=== PATIENT | male | born 1950 | race African-American/Black ===

== ENCOUNTER 2016-12-23 17:12 | Emergency (ER) | payer MEDICARE, MEDICAID ==
[2016-12-23] MEDS ORDERED: Acetaminophen/Codeine 30-300mg Tablet ONE (18:00)
[2016-12-23 18:23] LABS: #Basophils 0.1 thou/uL (0.0-0.2); #Eosinphils 0.1 thou/uL (0.0-0.7); #Lymphocytes 1.7 thou/uL (1.20-3.40); #Monocytes 0.7 thou/uL (0.11-0.59); #Neutrophils 4.8 thou/uL (1.40-6.50); %Basophils 1.6 % (0.0-1.0); %Lymphocytes 22.8 % (21.0-51.0); Hematocrit 42.2 % (42.0-52.0); Mean Platelet Volume 8.5 fL (7.4-10.4); Red Blood Cell (RBC) Count 4.67 mill/uL (4.70-6.10); White Blood Cell (WBC) Count 7.5 thou/uL (4.8-10.8)
[2016-12-23 18:38] LABS: Lactic Acid - Sepsis 2.6 mmol/L (0.5-2.2)
[2016-12-23 18:42] LABS: Anion Gap 14 mmol/L (10-20); BUN (Urea Nitrogen) 23 mg/dL (8.4-25.7); Calc. Creatinine Clearance 0 mL/min (70-130); Calcium 10.1 mg/dL (7.8-10.44); Carbon Dioxide 28 mmol/L (23-31); Chloride 104 mmol/L (98-107); Estimated GFR-MDRD 72
--- NOTE | 2016-12-23 19:39 | RAD ---
THREE VIEWS LEFT FOOT: 12/23/16 HISTORY: Erythema of left foot. Swelling of left foot and erythema for three days. Left foot pain is worse wi th ambulation. FINDINGS: There is osteoarthritis involving the first metatarsophalangeal joint as well as the interphalangeal joint great toe. No fracture or dislocation is seen. No osseous destruction is identified. IMPRESSION: 1. Osteoarthritis first metatarsophalangeal joint and to a lesser extent involving the interphalangeal joint great toe. 2. No osseous destruction is seen. However, if there is clinical concern for osteomyelitis, MRI left foot is recommended for further evaluation. POS: [facility]
--- NOTE | 2016-12-23 19:52 | RAD ---
THREE VIEWS LEFT ANKLE 12/23/16 HISTORY: Left foot redness and swelling for three days. FINDINGS: The ankle mortise is congruent. There is no fracture or dislocation seen. Tiny plantar calcaneal ent hesophyte is seen. There are vascular calcifications posterior to the ankle and hindfoot. IMPRESSION: No acute osseous abnormality. POS: [facility]
[2016-12-23 20:53] LABS: Lactic Acid - Sepsis 1.1 mmol/L (0.5-2.2)
== END 2016-12-23 21:56 | disposition home or self-care (01) ==
LOC: ERS 17:12
DX: L03.116 Cellulitis of left lower limb (principal); I25.10 Atherosclerotic heart disease of native coronary artery without angina pectoris; E78.5 Hyperlipidemia, unspecified; I10 Essential (primary) hypertension; Z79.899 Other long term (current) drug therapy
CPT/HCPCS: 36415; 80048; 83605; 85025; 96361; 96374

== ENCOUNTER 2017-04-16 16:36 | Emergency (ER) | payer MEDICARE, MEDICAID, OTHER ==
[2017-04-16] MEDS ORDERED: Dexamethasone 4 MG TAB ONE (19:00)
== END 2017-04-16 19:06 | disposition home or self-care (01) ==
LOC: ERS 16:36
DX: J04.0 Acute laryngitis (principal); I25.10 Atherosclerotic heart disease of native coronary artery without angina pectoris; E78.5 Hyperlipidemia, unspecified; I10 Essential (primary) hypertension
CPT/HCPCS: 87081; 87430; 99283; J8540

== ENCOUNTER 2017-10-18 16:04 | Observation (INO) | payer MEDICARE, OTHER ==
--- NOTE | 2017-10-18 17:45 | RAD ---
RIGHT HUMERUS TWO VIEWS: 10/18/17 HISTORY: Fall. Pain. FINDINGS: Sclerosis of the greater tuberosity likely due to degenerative change. No fracture. No cortical irreg ularity. No periosteal reaction. IMPRESSION: No fracture. POS: [facility]
[2017-10-18 18:00] LABS: #Basophils 0.1 thou/uL (0.0-0.2); #Eosinphils 0.1 thou/uL (0.0-0.7); #Monocytes 0.5 thou/uL (0.11-0.59); #Neutrophils 4.1 thou/uL (1.40-6.50); %Basophils 1.5 % (0.0-1.0); %Eosinophils 1.8 % (0.0-10.0); %Lymphocytes 29.2 % (21.0-51.0); %Monocytes 7.9 % (0.0-10.0); %Neutrophils 59.7 % (42.0-75.0); Hemoglobin 13.6 g/dL (14.0-18.0); Mean Corpuscular HGB CONC 33.4 g/dL (32.0-36.0); Mean Corpuscular Hemoglobin 29.2 pg (27.0-31.0); Mean Corpuscular Volume 87.5 fL (78.0-98.0); Mean Platelet Volume 8.6 fL (7.4-10.4); Platelet Count 184 thou/uL (130-400); RBC Distribution Width 12.6 % (11.5-14.5); Red Blood Cell (RBC) Count 4.67 mill/uL (4.70-6.10); White Blood Cell (WBC) Count 6.8 thou/uL (4.8-10.8)
--- NOTE | 2017-10-18 18:16 | RAD ---
FOUR VIEWS RIGHT ELBOW: 10/18/17 HISTORY: Fall. Pain. COMPARISON: None. FINDINGS: There is dorsal soft tissue swelling with soft tissue calcifications of uncertain significance. There is no joint effusion. However, there appears to be a slight angulation and questionable sclerosis in volving the proximal radius/radial head. Correlate for a possible acute/subacute injury. IMPRESSION: 1. Questionable acute/subacute proximal radius/radial head injury. 2. Soft tissue swelling and calcifications along the dorsum of the elbow. Findings may be due to remote trauma. POS: [facility]
--- NOTE | 2017-10-18 18:17 | RAD ---
CHEST ONE VIEW: 10/18/17 COMPARISON: 03/11/12. HISTORY: Frequent falls. Pain. FINDINGS: Normal cardiac silhouette. Pulmonary vessels and pulmonary hilum are normal. Costophrenic angles are clear. No mass. No consolidation. No pneumothorax or osseous abnormalities. IMPRESSION: No acute cardiopulmonary process. POS: [facility]
[2017-10-18 18:20] LABS: ALT (SGPT) 22 U/L (8-55); AST (SGOT) 31 U/L (5-34); Albumin 4.2 g/dL (3.4-4.8); Alkaline Phosphatase 64 U/L (40-150); Anion Gap 13 mmol/L (10-20); BUN (Urea Nitrogen) 24 mg/dL (8.4-25.7); Bilirubin, Total 0.5 mg/dL (0.2-1.2); Calc. Creatinine Clearance 0 mL/min (70-130); Calcium 9.6 mg/dL (7.8-10.44); Carbon Dioxide 26 mmol/L (23-31); Chloride 107 mmol/L (98-107); Estimated GFR-MDRD 68; Globulin 3.2 g/dL (2.4-3.5); Glucose 94 mg/dL (80-115); Potassium 3.4 mmol/L (3.5-5.1); Protein, Total 7.4 g/dL (5.8-8.1); Sodium 143 mmol/L (136-145)
[2017-10-18 18:23] LABS: Troponin I Less than 0.010 ng/mL (< 0.028)
[2017-10-18 18:28] LABS: CKMB 7.9 ng/mL (0-6.6)
--- NOTE | 2017-10-18 18:28 | CT ---
CT BRAIN WITHOUT CONTRAST: 10/18/17 COMPARISON: 08/23/09. HISTORY: Frequent falls for the past three months. FINDINGS: No parenchymal hemorrhage. No extra-axial hematoma. No midline shift. Basilar cisterns are patent. Ag e appropriate brain volume loss. Cortical magallon-white matter differentiation is preserved. Sulci are p atent. 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 No evidence of hydrocephalus. No significant change in the overall appearance of the ventricular system. Calvarium is intact. Adequate aeration of the sinuses and mastoid air cells. IMPRESSION: 1. No acute intracranial process. 2. 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 POS: [facility]
[2017-10-18 18:49] LABS: Bilirubin Negative (Negative); Blood, Urine Negative (Negative); Glucose, Urine (Dipstick) Negative (Negative); Leukocyte Negative (Negative); Nitrite Negative (Negative); Protein, Urine (Dipstick) Negative (Neg-Trace); Specific Gravity, Urine 1.025 (1.005-1.030); Urobilinogen 0.2 mg/dL (0.2-1.0); pH, Urine 5.5 (5.0-9.0)
[2017-10-18 18:56] LABS: Clarity CLEAR (Clear)
[2017-10-18 21:46] LABS: Troponin I Less than 0.010 ng/mL (< 0.028)
[2017-10-18 21:47] LABS: CKMB 7.2 ng/mL (0-6.6); Critical Call CKMBM RESULT DECREASING
--- NOTE | 2017-10-18 22:31 | PDOC.FPRHP ---
- History of Present Illness Chief Complaint: Fall History of Present Illness: 67yo M with PMH of CAD s/p stents x4 presents for 3 month history of falls. Reports he has fallen over 10 times in the last three months due to loss of balance and LLE weakness. No syncope, no dizziness, no light headedness. Pt does not recall if he has hit his head. He has never experienced falls of this type and frequency before. Pt also complains of R arm pain, reporting he requently falls on R elbow and most recently hit his elbow on a hard table. Pain is alleviated by immobilization with other arm. Pt describes LLE weakness as constant with intermittent exacerbations (causing falls) and that it is also often numb and/or mildy painful. Symptoms alleviated by aspirin somewhat. Pt has also tried sleeping with leg on pillow but it has not helped. - Allergies/Adverse Reactions Allergies Allergy/AdvReac Type Severity Reaction Status Date / Time Influenza Virus Vaccines Allergy Verified 10/19/17 03:47 pneumococcal vaccine Allergy Verified 10/19/17 03:47 - Home Medications Medication Instructions Recorded Confirmed Type Allopurinol 300 mg PO DAILY 10/18/17 10/18/17 History Aspirin [Ecotrin Low Strength] 81 mg PO DAILY 10/18/17 10/18/17 History Atenolol/Chlorthalidone 1 tab PO DAILY 10/18/17 10/18/17 History [Atenolol-Chlorthalidone 100-25] Folic Acid 1 mg PO DAILY 10/18/17 10/18/17 History Meloxicam 15 mg PO DAILY 10/18/17 10/18/17 History Pravastatin Sodium 40 mg PO HS 10/18/17 10/18/17 History - History PMHx: CAD s/p stents x4, CHF, HTN, HLD, gout PSHx: Undetermined L kidney surgery per pt FHx: PVD, CAD Social: tobacco- denies, EtOH- denies, drugs- denies - Review of Systems General: reports: other (weakness, no dizziness). denies: fever/chills, fatigue ENT: denies: nasal congestion, rhinorrhea Respiratory: denies: cough, congestion, shortness of breath Cardiovascular: denies: chest pain, palpitation Gastrointestinal: reports: other (incontinence). denies: nausea, vomiting Genitourinary: reports: incontinence. denies: dysuria Skin: denies: rashes, lesions Musculoskeletal: reports: pain, other (weakness) Neurological: denies: syncope, seizure Psychological: reports: other (normal mood and affect) - Vital signs BP: [164/72] HR: [68] RR: [18] Tmax: [98.2] Pox: [97]% on [RA] Wt: [114.12] - Physical Exam Constitutional: awake, alert and oriented, other (Pt appears moderatly distressed by arm pain) HEENT: normocephalic and atraumatic, EOMI, conjunctiva clear, no scleral icterus , MMM Neck: trachea midline Heart: RRR, normal S1/S2, no murmurs/rubs/gallops, pulses present Lungs: CTAB, no respiratory distress Abdomen: soft, non-tender Musculoskeletal: normal structure, other (R arm- Impressive tenderness to palpation on medial and lateral elbow, decreased ROM on extension and internal/ external rotation, decreased L pedal pulse) Neurological: other ( decreased strength diffusely on LLE, decreased sensation on L foot. normal sensation and 5/5 strength on RLE) Skin: no rash/lesions, good turgor Heme/Lymphatic: no purpura, no petechia Psychiatric: normal mood and affect, intact recent and remote memory FMR H&P: Results - Labs Result Diagrams: 10/19/17 04:07 10/19/17 04:07 Lab results: WBC 6.8 thou/uL (4.8-10.8) 10/18/17 17:50 Hgb 13.6 g/dL (14.0-18.0) L 10/18/17 17:50 Hct 40.8 % (42.0-52.0) L 10/18/17 17:50 MCV 87.5 fL (78.0-98.0) 10/18/17 17:50 Plt Count 184 thou/uL (130-400) 10/18/17 17:50 Neutrophils % 59.7 % (42.0-75.0) 10/18/17 17:50 Sodium 143 mmol/L (136-145) 10/18/17 17:50 Potassium 3.4 mmol/L (3.5-5.1) L 10/18/17 17:50 Chloride 107 mmol/L (98-107) 10/18/17 17:50 Carbon Dioxide 26 mmol/L (23-31) 10/18/17 17:50 BUN 24 mg/dL (8.4-25.7) 10/18/17 17:50 Creatinine 1.28 mg/dL (0.6-1.3) 10/18/17 17:50 Glucose 94 mg/dL (80-115) 10/18/17 17:50 Calcium 9.6 mg/dL (7.8-10.44) 10/18/17 17:50 Total Bilirubin 0.5 mg/dL (0.2-1.2) 10/18/17 17:50 AST 31 U/L (5-34) 10/18/17 17:50 ALT 22 U/L (8-55) 10/18/17 17:50 Alkaline Phosphatase 64 U/L (40-150) 10/18/17 17:50 Creatine Kinase 933 U/L (30-200) H 10/18/17 21:11 CK-MB (CK-2) 7.2 ng/mL (0-6.6) H* 10/18/17 21:11 B-Natriuretic Peptide 15.3 pg/mL (0-100) 10/18/17 17:50 Serum Total Protein 7.4 g/dL (5.8-8.1) 10/18/17 17:50 Albumin 4.2 g/dL (3.4-4.8) 10/18/17 17:50 Urine Ketones Negative mg/dL (Negative) 10/18/17 18:26 Urine Blood Negative (Negative) 10/18/17 18:26 Urine Nitrite Negative (Negative) 10/18/17 18:26 Ur Leukocyte Esterase Negative (Negative) 10/18/17 18:26 FMR H&P: A/P - Problem List (1) Recurrent falls Status: Acute Code(s): R29.6 - REPEATED FALLS (2) Rhabdomyolysis Status: Acute Code(s): M62.82 - RHABDOMYOLYSIS (3) Right arm pain Status: Acute Code(s): M79.601 - PAIN IN RIGHT ARM (4) CHF (congestive heart failure) Status: Acute Code(s): I50.9 - HEART FAILURE, UNSPECIFIED (5) CAD (coronary artery disease) Status: Acute Code(s): I25.10 - ATHSCL HEART DISEASE OF [place] CORONARY ARTERY W/O ANG PCTRS - Plan 67yo M with PMH of CAD s/p stents x4 and MR presenting for 3 month history of recurrent falls. Recurrent falls and LLE weakness A- CT unremarkable. Cardiac causes vs. PAD vs. musculoskeletal P- TTE - XR pelvis, L hip/femur, and Lumbar (will consider lumbar and head MRI) - ESR - PT and OT Rhabdomyolysis A- In ED CK 940, CKMB 7.9 was given 1L NS. Pt has history of CHF so will be cautious with IVF. P- LR @ 100ml/hr - repeat CKMB and CK in 3 hours CHF A- Pt has good O2 sat on RA, no clinical signs of exacerbation P- TTE - monitor signs of overload R arm and L hip pain A- R arm XR showed no fractures P- prn tramadol - XR as listed above Hypokalemia - replace with LR CAD - home meds Gout - home meds HTN -home meds -prn hydralazine FMR H&P: Upper Level - Pertinent history 67 yo AAM PMH intellectual disability, HTN, CHF (unspecified) CAD s/p stent placement x4, HLD, and absent corpous collusum. Presents with recurrent falls x 10 in past 3 months. New onset as of 3 months ago. Denies LOC. Reports weakness in legs. Normally falls to the right. Has hit right elbow multiple times and is complaining of pain in right arm. Most recent fall was today when he fell on glass table. States he occasionally has issues with incontinence because he cannot make it to the bathroom in time. History is limited due to patient's baseline MR. ER: Labs, CT brain, XR elbow and shoulder, ASA, NS x 1L. Remarkable for elevated CK and CK-MB - Pertinent findings Vitals: BP elevated 164/72, likely due to pain. otherwise WNL GEN: Appears to be in mild to moderate pain that worsens with movement. A&O x4. EENT: PERRL, EOMI, poor dentition MMM CV: RRR, no murmur, rubs, or gallops, pedal pulses present bilaterally, Lung: CTA-B, normal effort Neuro: Exam limited due to pain in patient's left leg. Decrease strength 3/5 in left lower leg in all major muscle groups. 5/5 right leg. CN 2-12 grossly intact. Right patellar reflex 2/4. Left patellar reflex brisk 3/4. Difficult to illicit clonus. Patient able to stand briefly, normal sensation MS: marked TTP along gluteal region of left hip, greater trochanter, and IT band. Back: No paraspinal or midline TTP. Imaging: XR elbow shows possible subacute injury to radial head. CXR negative, CT Brain negative EKG: unremarkable. Labs. Hypokalemic at 3.4. CK elevate mid 900s. CKMB elevated at mid 7s. Mild down trend with 1 L fluid. - Plan Date/Time: 10/18/17 8039 I, Armand Gonzales MD, have evaluated this patient and agree with findings/plan as outlined by general internal medicine doctor resident. Pertinent changes/additions are listed here. 1. Recurrent falls with left sided weakness- CT brain unremarkable except for chronic findings. Check TTE, XR pelvis and left hip/femur, consider MRI lumbar spine to evaluate for impingement, check ESR to evaluate for autoimmune conditions, fall precautions. 2. Mild rhabdomyolysis- given hx CHF, gentle LR at 100 mL per hour, repeat CKMB and CK in 3 hours 3. CHF: TTE, monitor for signs of fluid overload 4. CAD: home meds 5. Hypokalemia: replace with LR 6. HTN: Monitor, home meds, PRNs available 7. MR: will attempt to obtain history from family tomorrow 8. Left hip pain: PRN tramadol available 9. Diet: HH 10. CODE: Full Attending Addendum - Attending Addendum Date/Time: 10/19/17 [id number] I personally evaluated the patient and discussed the management with Dr. Kilpatrick and Dr. Gonzales I agree with the History, Examination, Assessment and Plan documented above with any addition or exceptions noted below. 67 yo male with multiple medical conditions presented for evaluation of recurrent falls. Patient noticed weakness in pelvic girdle muscles over the past several weeks. Weakness noted on exam along with other UMN lesion findings with brisk reflex and possible mild clonus. Will rule out myositis as cause due to elevated muscle enzymes. MRI in AM to evaluate spine and spinal canal. [facility]
[2017-10-19 01:14] LABS: Troponin I 0.011 ng/mL (< 0.028)
[2017-10-19] MEDS ORDERED: hydrALAZINE 20 MG/ML VIAL SLOW IVP PRN (01:15)
[2017-10-19] MEDS ORDERED: traMADol HCl 50 MG TAB PO PRN (03:21)
[2017-10-19] MEDS ORDERED: Ondansetron ODT 4 MG TAB PO PRN (03:21)
[2017-10-19] MEDS ORDERED: Acetaminophen 325 MG TAB PO PRN (03:21)
[2017-10-19] MEDS: Lactated Ringer's 1,000 ML IV SCH ×2 (04:05→18:52)
[2017-10-19 05:02] LABS: #Basophils 0.1 thou/uL (0.0-0.2); #Eosinphils 0.2 thou/uL (0.0-0.7); #Lymphocytes 2.3 thou/uL (1.20-3.40); #Monocytes 0.6 thou/uL (0.11-0.59); #Neutrophils 3.6 thou/uL (1.40-6.50); %Basophils 1.5 % (0.0-1.0); %Eosinophils 2.8 % (0.0-10.0); %Lymphocytes 33.9 % (21.0-51.0); %Monocytes 8.5 % (0.0-10.0); %Neutrophils 53.3 % (42.0-75.0); Hemoglobin 13.1 g/dL (14.0-18.0); Mean Corpuscular Hemoglobin 29.6 pg (27.0-31.0); Mean Corpuscular Volume 87.2 fL (78.0-98.0); Mean Platelet Volume 8.7 fL (7.4-10.4); Platelet Count 166 thou/uL (130-400); RBC Distribution Width 12.7 % (11.5-14.5); Red Blood Cell (RBC) Count 4.42 mill/uL (4.70-6.10); White Blood Cell (WBC) Count 6.7 thou/uL (4.8-10.8)
[2017-10-19 05:09] LABS: ALT (SGPT) 20 U/L (8-55); AST (SGOT) 28 U/L (5-34); Albumin 3.8 g/dL (3.4-4.8); Alkaline Phosphatase 60 U/L (40-150); Anion Gap 11 mmol/L (10-20); BUN (Urea Nitrogen) 19 mg/dL (8.4-25.7); Bilirubin, Total 0.6 mg/dL (0.2-1.2); Calc. Creatinine Clearance 0 mL/min (70-130); Calcium 9.1 mg/dL (7.8-10.44); Carbon Dioxide 27 mmol/L (23-31); Chloride 107 mmol/L (98-107); Estimated GFR-MDRD 81; Globulin 2.9 g/dL (2.4-3.5); Glucose 97 mg/dL (80-115); Potassium 3.1 mmol/L (3.5-5.1); Protein, Total 6.7 g/dL (5.8-8.1); Sodium 142 mmol/L (136-145)
[2017-10-19 05:14] LABS: CKMB 5.1 ng/mL (0-6.6); Troponin I Less than 0.010 ng/mL (< 0.028)
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
[2017-10-19] MEDS: Folic Acid 1 MG TAB PO SCH (08:50)
[2017-10-19] MEDS: Allopurinol 300 MG TAB PO SCH (08:50)
[2017-10-19] MEDS: Atenolol 50 MG TAB PO SCH (08:50)
[2017-10-19] MEDS: Aspirin 81 mg Enteric Coated Tablet PO SCH (08:50)
--- NOTE | 2017-10-19 09:29 | RAD ---
AP PELVIS: HISTORY: Hip pain. FINDINGS: There are some arthritic changes of the lower lumbar spine. There are some mild arthritic changes of both hips. No signs of any acute bony process. IMPRESSION: Very mild arthritic changes of both hips. POS: [facility]
--- NOTE | 2017-10-19 09:30 | RAD ---
LUMBAR SPINE SERIES 3 VIEWS: HISTORY: Recurrent fails. FINDINGS: Vertebral bodies are normal in height. There is severe disk narrowing at the L5-S1 level. Vacuum di sk phenomenon. Marked degenerative facet changes are seen. Pedicles appear intact. IMPRESSION: Marked degenerative disk narrowing at L5-S1. POS: [facility]
--- NOTE | 2017-10-19 09:31 | RAD ---
LEFT HIP 2 VIWS: HISTORY: Hip pain. Fairly minimal arthritic changes of the hip are seen. No significant joint space narrowing. There i s minimal spurring along the femoral head and neck junction. IMPRESSION: Minimal arthritic changes of the hip. POS: [facility]
--- NOTE | 2017-10-19 09:41 | RAD ---
LEFT FEMUR 2 VIEWS: HISTORY: Fall. Pain. COMPARISON: None. FINDINGS: There is no acute displaced fracture or malalignment. Moderate vascular calcifications. IMPRESSION: No acute fracture or malalignment. POS: [facility]
[2017-10-19] MEDS ORDERED: Potassium Chloride 20 MEQ TAB PO SCH (11:00)
[2017-10-19 11:05] VITALS: BMI 33.0
--- NOTE | 2017-10-19 13:19 | MRI ---
MRI OF LUMBAR SPINE PERFORMED WITHOUT CONTRAST ENHANCEMENT: History Back pain and left lower extremity weakness. FINDINGS: The vertebral bodies are normal in height. There are disk desiccation changes and disk narrowing at L5-S1 and spondylolisthesis at this level of approximately 6-7 mm. No significant periaortic adenopathy is appreciated. Visualized portions of the kidneys appear unrem arkable. T12-L1: Unremarkable. L1-2: Unremarkable. L2-3: Facet hypertrophic changes without canal or foraminal stenosis. L3-4: Some disk bulge and mild facet hypertrophic changes associated with some borderline canal narr owing. No significant foraminal stenosis. L4-5: Disk bulge, facet and ligamentous hypertrophic changes are present at this level. This is ass ociated with a moderate degree of canal stenosis. There appears to be a small right paracentral supe rior disk extrusion also noted. There is bilateral foraminal narrowing which is moderate and worse o n the left. L5-S1: Degenerative facet and ligamentous hypertrophic changes associated with a moderate degree of canal narrowing. This, in combination with the facet changes and spondylolisthesis, cause fairly pro nounced bilateral foraminal narrowing. IMPRESSION: 1. Moderate canal stenosis at the L4-5 and L5-S1 levels. 2. Right paracentral small superior disk extrusion at L4-5. 3. Bilateral foraminal narrowing at the L4-5 and L5-S1 levels. POS: [facility]
[2017-10-19] MEDS ORDERED: Atorvastatin Calcium 10 MG TAB PO SCH (21:00)
--- NOTE | 2017-10-20 03:26 | DIS-2 ---
DATE OF ADMISSION: 10/19/2017 DATE OF DISCHARGE: 10/19/2017 RESIDENT: Moo Read DO. ADMITTING ATTENDING: Dr. Dayana Webber. DISCHARGE ATTENDING: Dr. Mario Ascencio. CONSULTATIONS: None. PROCEDURES: Patient had an x-ray of his right elbow showing soft tissue swelling and questionable ac silvano versus subacute proximal radius injury. Chest x-ray showed no acute cardiopulmonary processes. X-ray of the humerus showed no fracture. X-ray of femur showed no acute fracture or misalignment. X -ray of hip showed minimal arthritic changes of the hip. X-ray of the lumbar spine shows marked dege nerative disk narrowing at L5-S1. Pelvis x-ray showed mild arthritic changes in both hips. Brain CT showed no acute intracranial processes and corpus callosum agenesis with association of findings. L umbar spine MRI showed moderate canal stenosis of the L4-L5 and L5-S1 levels, right parenchymal small superior disk extrusion at L4-L5, bilateral foraminal narrowing at L4-L5 and L5-S1 levels. Echocard iogram showed ejection fraction of 50% to 55%, normal left atrium and ventricle, mild mitral and tric uspid regurgitation. PRIMARY DIAGNOSIS: Left lower extremity weakness due to lumbar stenosis. SECONDARY DIAGNOSES: Coronary artery disease with 4 stents, congestive heart failure, hypertension, hyperlipidemia, gout. DISCHARGE MEDICATIONS: None. DISCONTINUED MEDICATIONS: None. HISTORY OF PRESENT ILLNESS: This patient presented to the ER with a history of 10 falls in the last 3 months. Patient states that he feels like his left leg gives out without any warning. During his hospital stay, patient was worked up for any immediate risk problems. The patient was discharged and instructed to follow up with his primary care provider, Dr. Burnett regarding the workup that he rec eived this hospital. DISPOSITION: Stable. DISCHARGE INSTRUCTIONS: 1. Location: Home. 2. Diet: Heart healthy. 3. Activity: As tolerated. 4. Follow up with primary care physician in the next 1-2 weeks.
[2017-10-20 08:25] VITALS: TEMP 97.6
[2017-10-20] MEDS: Folic Acid 1 MG TAB PO SCH (09:07)
[2017-10-20] MEDS: Aspirin 81 mg Enteric Coated Tablet PO SCH (09:07)
[2017-10-20] MEDS: Allopurinol 300 MG TAB PO SCH (09:07)
[2017-10-20] MEDS: Atenolol 50 MG TAB PO SCH (09:08)
[2017-10-20 10:04] VITALS: BP 135/74
--- NOTE | 2017-10-22 11:56 | EKG ---
Test Reason : Blood Pressure : / mmHG Vent. Rate : 059 BPM Atrial Rate : 059 BPM P-R Int : 174 ms QRS Dur : 128 ms QT Int : 432 ms P-R-T Axes : 102 -27 006 degrees QTc Int : 427 ms Sinus bradycardia Right bundle branch block Moderate voltage criteria for LVH, may be normal variant Cannot rule out Inferior infarct , age undetermined Abnormal ECG Confirmed by KEVIN MADRIGAL ([id number]), fashion editor EBENEZER COOPER ([id number]) on 10/22/2017 11:56:32 AM Referred By: Confirmed By:KEVIN MADRIGAL
== END 2017-10-20 09:45 | disposition home or self-care (01) ==
LOC: ERS 16:04 → 2SW 10-19
PROVIDERS: ADMIT Student in an Organized Health Care Education/Training Program; ATTEND Student in an Organized Health Care Education/Training Program
DX: M48.061 Spinal stenosis, lumbar region without neurogenic claudication (principal); I25.10 Atherosclerotic heart disease of native coronary artery without angina pectoris; I11.0 Hypertensive heart disease with heart failure; I50.9 Heart failure, unspecified; E78.5 Hyperlipidemia, unspecified; R29.6 Repeated falls; E87.6 Hypokalemia; Z95.5 Presence of coronary angioplasty implant and graft; Z79.82 Long term (current) use of aspirin; Z79.899 Other long term (current) drug therapy; Z88.8 Allergy status to other drugs, medicaments and biological substances
CPT/HCPCS: 70450; 71045; 72100; 72148; 72170; 73060; 73080; 73502; 73552; 80053 ×2; 81003; 82550 ×2; 82553 ×3; 83880; 84484 ×4; 85025 ×2; 85652; 93005; 93306; 96360; 96361 ×2; 97116; 97139 ×3; 99285; G0378; G8978; G8979; G8980; G8987; G8988; G8989; 36415

== ENCOUNTER 2019-04-20 09:41 | Emergency (ER) | payer MEDICARE, OTHER | END 2019-04-20 10:25 | disposition home or self-care (01) | LOC: ERS 09:41 | DX: G51.0 Bell's palsy (principal) | CPT/HCPCS: 99283 ==

== ENCOUNTER 2019-10-05 13:00 | Observation (INO) | payer MEDICARE, OTHER ==
[2019-10-05 13:49] LABS: #Basophils 0.1 thou/uL (0.0-0.2); #Eosinphils 0.2 thou/uL (0.0-0.7); #Lymphocytes 0.9 thou/uL (1.20-3.40); #Monocytes 0.1 thou/uL (0.11-0.59); #Neutrophils 7.2 thou/uL (1.40-6.50); %Basophils 0.7 % (0.0-1.0); %Eosinophils 2.5 % (0.0-10.0); %Lymphocytes 10.4 % (21.0-51.0); %Monocytes 1.5 % (0.0-10.0); %Neutrophils 84.9 % (42.0-75.0); Hemoglobin 14.3 g/dL (14.0-18.0); Mean Corpuscular HGB CONC 32.9 g/dL (32.0-36.0); Mean Corpuscular Hemoglobin 29.1 pg (27.0-31.0); Mean Corpuscular Volume 88.5 fL (78.0-98.0); Mean Platelet Volume 9.6 fL (7.4-10.4); Platelet Count 192 thou/uL (130-400); RBC Distribution Width 13.5 % (11.5-14.5); Red Blood Cell (RBC) Count 4.92 mill/uL (4.70-6.10); White Blood Cell (WBC) Count 8.5 thou/uL (4.8-10.8)
--- NOTE | 2019-10-05 13:54 | RAD ---
PORTABLE CHEST ONE VIEW: 10/05/19 at 1:50 p.m. HISTORY: Cough, hemoptysis. COMPARISON: 10/18/17. FINDINGS: The heart size is borderline. The lungs are expanded without lobar consolidation, pneumothoraces, fra nk pulmonary edema or pleural effusions. IMPRESSION: No acute process. POS: [facility]
[2019-10-05] MEDS ORDERED: Pantoprazole 40 MG VIAL ONE (14:33)
[2019-10-05] MEDS ORDERED: cefTRIAXone\\ROCEPHIN 2 GM VIAL ONE (14:33)
[2019-10-05] MEDS ORDERED: Sodium Chloride 0.9% 100 ML ONE (14:33)
[2019-10-05 14:35] LABS: ALT (SGPT) 31 U/L (8-55); AST (SGOT) 48 U/L (5-34); Albumin 4.1 g/dL (3.4-4.8); Alkaline Phosphatase 70 U/L (40-110); Anion Gap 13 mmol/L (10-20); BUN (Urea Nitrogen) 27 mg/dL (8.4-25.7); Bilirubin, Total 0.5 mg/dL (0.2-1.2); Calc. Creatinine Clearance 0 mL/min (70-130); Calcium 9.9 mg/dL (7.8-10.44); Carbon Dioxide 27 mmol/L (23-31); Chloride 103 mmol/L (98-107); Estimated GFR-MDRD 70; Globulin 3.5 g/dL (2.4-3.5); Glucose 112 mg/dL (80-115); Potassium 4.2 mmol/L (3.5-5.1); Protein, Total 7.6 g/dL (5.8-8.1); Sodium 139 mmol/L (136-145)
[2019-10-05] MEDS ORDERED: Iopamidol 370 76% 100 ML VIAL ONE (14:38)
[2019-10-05] MEDS ORDERED: GASTROGRAFIN 30 ML BOT ONE (14:50)
[2019-10-05 14:58] LABS: INR-International Normal Ratio 0.9
[2019-10-05 15:00] LABS: PTT 26.6 sec (22.9-36.1)
--- NOTE | 2019-10-05 15:52 | RAD ---
EXAM: CHEST ONE VIEW HISTORY: Upper abdominal pain, hematemesis. Vomiting. Evaluate for rupture of esophagus. COMPARISON: Chest x-ray on 10/05/2019 at 1350 hours. FINDINGS: Cardiac silhouette is magnified by projection but does appear mildly enlarged. Pulmonary vasculature is within normal limits. Mid and lower right lateral chest is obscured on provided images. Visualized lungs are clear. No pneumothorax or large pleural effusion is seen. Initial image demonstr ates contrast within the region of the piriform sinuses with subsequent images demonstrating a small amount contrast in the lower cervical and upper thoracic esophagus. No other interval change. IMPRESSION: 1. No acute cardiopulmonary process. 2. Mild cardiomegaly. 3. No pneumothorax or pneumomediastinum is visualized on this exam. 3. Small amount of contrast in the lower cervical and upper thoracic esophagus. However, the amount o f contrast in the esophagus precludes adequate evaluation of the esophagus on this exam. If there is concern for esophageal rupture, CT scan thorax with oral contrast is recommended for further evalu ation.
[2019-10-05] MEDS ORDERED: Acetaminophen 325 MG TAB PO PRN (16:03)
--- NOTE | 2019-10-05 16:25 | CT ---
ABDOMEN CT WITH CONTRAST PELVIC CT WITH CONTRAST: 10/05/19 HISTORY: Hematemesis. Four episodes of vomiting this morning. COMPARISON: 05/15/[address]: Lung bases are clear. There are dependent atelectatic changes. Normal heart size. No significant ammy cardial fluid. There are coronary calcifications. The visualized aorta has a normal caliber. No peria ortic fat stranding. Gallbladder is surgically absent. Hypoattenuation of the liver due to hepatic steatosis. Spleen, panc reas and adrenal glands have appropriate attenuation. No gastrohepatic, retrocrural or periportal lymphadenopathy. No mesenteric mass, lymphadenopathy, free air, or free fluid. Stable postsurgical changes involving the left renal cortex. Symmetric enhancement of the kidneys. Bi laterally, no obstructive uropathy. Limited evaluation of the alimentary canal by lack of oral contrast. There is a small hiatal hernia. Limited evaluation of the distal esophageal mucosa due to technique. Small amount of fluid is noted a djacent to the distal thoracic esophagus (axial image 15, series 2 and sagittal image 107, series 602 ). If there is concern for esophageal injury, consider esophagram versus endoscopy. Limited evaluatio n of the alimentary canal by lack of oral contrast. No evidence of a bowel obstruction. Normal ileoce enrique junction. Normal caliber appendix. Scattered fecal material in the nondistended, nondilated colon . Occasional diverticulum. No diverticulitis. PELVIC CT: No mass, lymphadenopathy, free air or free fluid. Presacral fat is preserved. No lytic or blastic lesions within the osseous structures. IMPRESSION: Nonspecific paraesophageal fluid involving the distal thoracic esophagus. Given patient's history of multiple episodes of emesis, additional imaging can be performed if clinically warranted. Results of the study discussed with Dr. Scott, 10/05/19, 3:06 p.m. Code CR POS: [facility]
--- NOTE | 2019-10-05 17:15 | PDOC.FPRHP ---
- History of Present Illness Chief Complaint: hematemesis History of Present Illness: Pt is a 69yo M with a PMH of CAD s/p stent placement, HTN, CKD stage II, CHF, HLD, and gout who presents with chief complaint of hematemesis. Patient states this morning he had 4 episodes of bloody vomit where we had dime and quarter size clots that filled up about an inch in a small trash can. He states this happened once before about 10 years ago, but never had it worked up. He says he was just relaxing and he started vomiting blood. Denies any associated abdominal pain during these episodes. He said he last ate ham and rice last night. He does endorse stabbing intermittent epigastric abdominal pain that is random in nature and not associated with food intake or anything specific. He denies having any recent episodes of nausea, vomiting, dark stools, GERD, liver problems, recent weight loss, history of heavy alcohol use, no IV drug use, or ulcers. Patient has never had an endoscopy or a colonoscopy. ED Course: Patient received 2g Rocephin, Protonix 40mg. - Allergies/Adverse Reactions Allergies Allergy/AdvReac Type Severity Reaction Status Date / Time Influenza Virus Vaccines Allergy Verified 06/14/19 16:01 pneumococcal vaccine Allergy Verified 06/14/19 16:01 - Home Medications Medication Instructions Recorded Confirmed Type Allopurinol 300 mg PO DAILY 10/18/17 10/06/19 History Aspirin [Ecotrin Low Strength] 81 mg PO DAILY 10/18/17 10/06/19 History Atenolol/Chlorthalidone 1 tab PO DAILY 10/18/17 10/06/19 History [Atenolol-Chlorthalidone 100-25] Folic Acid 1 mg PO DAILY 10/18/17 10/06/19 History Meloxicam 15 mg PO DAILY 10/18/17 10/06/19 History Pravastatin Sodium 40 mg PO HS 10/18/17 10/06/19 History Clopidogrel Bisulfate [Clopidogrel] 75 mg PO DAILY 10/06/19 10/06/19 History Gabapentin [Neurontin] 300 mg PO TID 10/06/19 10/06/19 History - History PMHx: CAD s/p stent placement, HTN, HLD, gout, CHF, CKD Stage II PSHx: patient is a poor historian, but endorses a kidney surgery and lipoma removal on his neck FHx: mom-heart attack Social: Patient is unemployed. Lives at home with cousin who is his primary care md. Endorses social alcohol use, denies drug or tobacco use - Review of Systems General: denies: fever/chills, weight/appetite/sleep changes, fatigue Eyes: denies: vision changes Respiratory: denies: shortness of breath Cardiovascular: denies: chest pain, edema Gastrointestinal: reports: GI bleeding (hematemesis). denies: nausea, vomiting , diarrhea, constipation, abdominal pain Skin: denies: rashes, jaundice Musculoskeletal: reports: pain ("cutting pain" down his left leg) Neurological: reports: weakness (left leg) Psychological: denies: anxiety, depression - Vital signs BP: 119/66 HR: 62 RR: 20 Tmax: 97.7 Pox: 98% on RA Wt: 104.3kg - Physical Exam Constitutional: NAD, awake, alert and oriented, well developed HEENT: normocephalic and atraumatic, EOMI, no scleral icterus, normal nasal mucosa, MMM, oropharynx clear Neck: supple, trachea midline Chest: no-tender to palpation Heart: RRR, normal S1/S2, no murmurs/rubs/gallops, pulses present, no edema Lungs: CTAB, no respiratory distress, no wheezing Abdomen: soft, non-tender (very mild epigastric tenderness, but patient states "that always hurts because a car landed on me"), bowel sounds present Musculoskeletal: normal tone, ROM grossly normal Neurological: CN II-XII intact Skin: no rash/lesions, good turgor, no jaundice Heme/Lymphatic: no unusual bruising or bleeding Psychiatric: normal mood and affect, good judgment and insight, intact recent and remote memory FMR H&P: Results - Labs Result Diagrams: 10/06/19 06:11 10/06/19 06:11 Lab results: WBC 8.5 thou/uL (4.8-10.8) 10/05/19 13:38 Hgb 14.3 g/dL (14.0-18.0) 10/05/19 13:38 Hct 43.5 % (42.0-52.0) 10/05/19 13:38 MCV 88.5 fL (78.0-98.0) 10/05/19 13:38 Plt Count 192 thou/uL (130-400) 10/05/19 13:38 Neutrophils % 84.9 % (42.0-75.0) H 10/05/19 13:38 Sodium 139 mmol/L (136-145) 10/05/19 13:38 Potassium 4.2 mmol/L (3.5-5.1) 10/05/19 13:38 Chloride 103 mmol/L (98-107) 10/05/19 13:38 Carbon Dioxide 27 mmol/L (23-31) 10/05/19 13:38 BUN 27 mg/dL (8.4-25.7) H 10/05/19 13:38 Creatinine 1.24 mg/dL (0.7-1.3) 10/05/19 13:38 Glucose 112 mg/dL (80-115) 10/05/19 13:38 Calcium 9.9 mg/dL (7.8-10.44) 10/05/19 13:38 Total Bilirubin 0.5 mg/dL (0.2-1.2) 10/05/19 13:38 AST 48 U/L (5-34) H 10/05/19 13:38 ALT 31 U/L (8-55) 10/05/19 13:38 Alkaline Phosphatase 70 U/L (40-110) 10/05/19 13:38 Serum Total Protein 7.6 g/dL (5.8-8.1) 10/05/19 13:38 Albumin 4.1 g/dL (3.4-4.8) 10/05/19 13:38 Additional comment: Chest XR neg, CT chest showed nonspecific paraesophageal fluid involving distal thoracic esophagitis. Subsequent gastrograffin study was inconclusive. - EKG Interpretation EKG: EKG showed sinus rhythm, LVH and RBBB but no ST segment elevation. FMR H&P: A/P - Plan Hematemesis likely 2/2 ulcer pt had 4 episodes of bloody vomit this morning, no further episodes received Protonix 40mg and Rocephin 2g in the ED he is hemodynamically stable and H/H is stable patient had elevated BUN at 27 and AST at 48 -GI, Dr. Holt consulted. Appreciate the recs -NPO -EGD planned for tomorrow (10/04) -Protonix 40mg BID -Liver U/S pending -MIVF LR @125mL/hr -F/u on Hep C Ab, GGT, H/H, vitals CAD s/p stents -aware -hold ASA, Plavix because of possible GI bleed HTN -aware, continue home Amlodipine -continue to monitor CKD II -Cr 1.24, GFR 70 -continue to monitor HLD -continue home Pravastatin Gout -continue home Allopurinol -hold Meloxicam CHF -last echo was 2018 and showed EF at 50-55% -continue home Atenolol -strict I/Os Disposition/LOS: Code: FULL PCP: [facility] IVF: MIVF @ 125ml/hr Diet: NPO GI prophylaxis: Protonix 40mg BID DVT Prophylaxis: SCDs Dispo: admit to Medicine, obs FMR H&P: Upper Level - Plan Date/Time: 10/05/19 1708 IJaciel PGY3, have evaluated this patient and agree with findings/plan as outlined by culinary intern resident. Pertinent changes/additions are listed here. 69yo M with pmh of HTN and OA presents for 4 episodes of hematemesis. He is currently asymptomatic On exam AVSS and WNL. Cardiopulmonary and GI exam only significant for mild epigastric TTP COAGS, CBC, and CMP are unremarkable except marginally elevated AST at 48 and BUN of 27 ASSESMENT AND PLAN: Hematemesis A- Pt is stable however he has relatively high Saad-Blatchford Bleeding Score of 6. He has risk factors for GIB with plavix and meloxicam however does not have any remarkable hx with alcohol. CXR/gastrographin study inconclusive 2/ [address] Abd/Pelvis shows periesophageal fluid. Considering his elevated AST he will benefit from observation and further workup. P- admit to medical for observation -RUQ US -GGT -HepC Ab -GI consult for potential EGD -protonix 40mg BID -NPO CHF A- Stable and unexacerbated. Last echo 2018 showing EF of 55-60% with no comment regarding diastolic function P- home medications -strict I/O's and daily weights -will be mindful of fluids CAD s/p 4 stents A- takes dual antiplatelet therapy at home P- will hold these meds to be restarted at GI's recommendations Gout, HTN -stable, resume home medications (minus NSAIDS) CODE: FULL IVF: maintenance LR DIET: NPO PCP: Dr. Morrissey dispo: medical, obs Addendum - Attending - Attending Attestation Date/Time: 10/06/19 6545 I personally evaluated the patient and discussed the management with Dr. Choudhary/ [place]. I agree with the History, Examination, Assessment and Plan documented above with any addition or exceptions noted below. Patient here for hematemesis x several episodes. Has some mild abdominal pain. Vitals stable, H/H stable. CT and Upper GI series nondiagnostic. GI evaluation and likely EGD. Will continue Protonix, obtain RUQ U/S. Further mgmt pending those results. Hold NSAIDS and anti-platelet meds.
[2019-10-05 19:35] LABS: Hep C IgG Ab Non-Reactive (NonReactive); Hep C Index 0.22 S/CO (0-0.79)
--- NOTE | 2019-10-05 19:39 | CON ---
DATE OF CONSULTATION: 10/05/2019 REASON FOR CONSULTATION: Hematemesis. CONSULTING PROVIDER: Dr. Jose Scott. HISTORY OF PRESENT ILLNESS: The patient is a 69-year-old male with past medical history of chronic leg pain; coronary artery disease, status post stent placement x4; gout, congestive heart failure, hypertension, and hyperlipidemia, presenting with complaints of hematemesis. He states that he was in his usual state of health of chronic leg pain and chronic chest pain until earlier this morning; when after waking, he consumed his morning medications and shortly after ingestion of his medications, experienced increased nausea and vomiting. His vomitus consisted primarily of the ingested pills, but it also consisted of a small amount of bright red blood in the trash can. With the appearance of this bright red blood in the trash can, it prompted him to seek healthcare assistance at the [facility] ER for which he is now being currently evaluated. Since that episode this morning, he has not had any further episodes of nausea, vomiting or hematemesis. However, he does complain of intermittent dysphagia that occur approximately once every three weeks and characterizes the sensation of food is having difficulty passing to the level of the mid and lower chest. He also endorses substernal chest pain that he has had "all my life" as well as more recently frequent falls associated with his chronic leg pain and weakness associated with leg pain. Otherwise, he denies any fevers, chills, diarrhea, constipation, hematochezia, melena, odynophagia, or weight loss. Of note, the patient was admitted to the hospital in 2007, for which the patient underwent an EGD on March 26, 2008. During that upper endoscopy, he was noted to have severe erosive esophagitis with a hiatal hernia. The indication for that particular procedure was hematemesis. REVIEW OF SYSTEMS: A 10-category review of systems was obtained with all responses negative except for the pertinent positives as listed in HPI. PAST MEDICAL HISTORY: As per HPI. PAST SURGICAL HISTORY: Kidney surgery, neck surgery, left great toe avulsion via lawnmower, EGD, and colonoscopy. FAMILY HISTORY: Denies any GI malignancies. SOCIAL HISTORY: Denies any tobacco, alcohol, or illicit drug use. OUTPATIENT MEDICATIONS: Gabapentin 600 mg t.i.d., atenolol/hydrochlorothiazide 100 mg/25 mg daily, amlodipine 5 mg daily, vitamin D supplementation, pravastatin 40 mg daily, allopurinol 300 mg daily, clopidogrel 75 mg daily with last dose yesterday, meloxicam 15 mg daily, aspirin 325 mg t.i.d., and vitamin C supplement. ALLERGIES: TYLENOL. PHYSICAL EXAMINATION: VITAL SIGNS: Not yet been recorded in the patient's chart for review. GENERAL: The patient is lying in bed, in no acute distress. Alert and oriented x4. HEENT: Normocephalic and atraumatic. NECK: Supple. No JVD or scleral icterus noted. CARDIOVASCULAR: Regular rate and rhythm with no discernible murmurs, gallops, or rubs. RESPIRATORY: Clear to auscultation bilaterally with no discernible wheezes or rales. ABDOMEN: Normoactive bowel sounds. Soft. Mild guarding to palpation. Nondistended. Tenderness to palpation in the midepigastric region. EXTREMITIES: No cyanosis, clubbing, or edema. LABORATORY DATA: CBC with a white blood cell count of 8.5, hemoglobin 14.3, hematocrit 43.5, and platelets are 192. INR 0.9. Chemistry with a sodium of 139, potassium 4.2, chloride 103, CO2 of 27, BUN 27, creatinine 1.24, glucose 112, AST 48, ALT 31, alkaline phosphatase 40, total bilirubin 0.5, and albumin 4.1. IMAGING DATA: Chest x-ray was obtained on October 05, 2019, which showed no acute cardiopulmonary process and also with no evidence of pneumothorax or pneumomediastinum. CT scan of the abdomen/pelvis was also obtained on October 05, 2019, which showed nonspecific periesophageal fluid involving the distal thoracic esophagus, but without evidence of air either in that region or within the mediastinum consistent with perforation. ASSESSMENT AND PLAN: The patient is a 69-year-old male with past medical history of chronic leg pain on multiple pain medications; coronary artery disease, status post stent placement x4, on Plavix; gout, congestive heart failure, hypertension, hyperlipidemia, and hiatal hernia with erosive esophagitis, presenting with chronic chest pain and an episode of hematemesis earlier today consistent with acid reflux. Hematemesis: The patient has a history of hematemesis in 2007 for which he underwent an EGD, which showed erosive changes in the distal esophagus as well as a small hiatal hernia without any evidence of overt bleeding at that time. Today, the patient experienced one episode of hematemesis with a small amount of bright red blood with no significant change in his H and H, making a massive GI bleed highly unlikely. However, the patient is currently taking approximately 1 g of aspirin daily, meloxicam 15 mg daily in addition to Plavix, which predisposes the patient towards erosive changes in both the esophagus and the stomach from a medication standpoint. Given his hiatal hernia and evidence of erosive changes in the past, acid reflux is also within the differential, which could also contribute to his distal esophageal wall thickening and possible paraesophageal fluid collections. Differential could include GERD, medication induced ulceration, peptic ulcer disease, arteriovenous malformation, Dieulafoy lesion, gastritis, duodenitis, and/or GI neoplasm (less likely). RECOMMENDATIONS: 1. We will continue to trend his H and H and transfuse as necessary to maintain an H and H of 7/21. 2. Continue to monitor clinically for signs of active GI bleeding. 3. Would hold all NSAIDs and anticoagulation in light of GI bleeding. 4. Would place the patient on a clear liquid diet today with n.p.o. at midnight in anticipation of EGD tomorrow. 5. Would plan for upper endoscopy tomorrow morning for intraluminal evaluation of the esophagus. 6. We will place the patient on PPI 40 mg IV b.i.d. We will continue to follow. Please call with any questions. Job ID: [id number]
[2019-10-05] MEDS ORDERED: Succinylcholine Chloride 20 MG/ML 10 ml SYRINGE FS ONE (20:27)
[2019-10-05] MEDS: Pantoprazole 40 MG VIAL IVP SCH (22:36)
[2019-10-05] MEDS: Lactated Ringer's 1,000 ML IV SCH (22:37)
--- NOTE | 2019-10-06 05:46 | PDOC.FM ---
- Subjective Subjective: Pt is a 69yo M with a PMH of CAD s/p stent placement, HTN, CKD stage II, CHF, HLD, and gout who presents with chief complaint of hematemesis. Overnight, no acute events. Patient was seen by GI who is taking him for an EGD this morning. Today, patient is resting comfortably in bed. He has no complaints at this time. Denies any more episodes of hematemesis, CP, SOB, GERD, abdominal pain, changes in bowel habits, dark stools, N/V, syncope, MAGUIRE. - Objective MAR Reviewed: Yes Vital Signs & Weight: Vital Signs (12 hours) Temp Pulse Resp BP Pulse Ox 10/06/19 04:00 97.4 F L 59 L 18 105/63 98 10/05/19 23:55 98.1 F 58 L 18 116/69 96 10/05/19 22:00 98.0 F 61 18 153/84 H 97 Weight Weight 96.162 kg Result Diagrams: 10/06/19 06:11 10/06/19 06:11 Phys Exam - Physical Examination Constitutional: NAD HEENT: sclera anicteric Neck: supple, full ROM Respiratory: no wheezing, clear to auscultation bilateral Cardiovascular: RRR, no significant murmur Gastrointestinal: soft, non-tender, no distention, positive bowel sounds Musculoskeletal: no edema Neurological: moves all 4 limbs Psychiatric: normal affect, A&O x 3 Skin: normal turgor Dx/Plan - Plan Plan: Hematemesis likely 2/2 ulcer pt had 4 episodes of bloody vomit this morning, no further episodes. received Protonix 40mg and Rocephin 2g in the ED. patient denied history of EGD or colonoscopy but as per Dr. Holt' note patient had an EGD in 2007 for chief complaint of hematemesis that showed severe erosive esophagitis with hiatial hernia and has also had a colonoscopy in the past -patient had elevated BUN at 27 and AST at 48 on admission, improving today with BUN of 22 and AST of 35 -he is hemodynamically stable and H/H is stable -GI, Dr. Holt consulted. Appreciate the recs -NPO -EGD planned for today (10/04), will follow up -Protonix 40mg BID -Liver U/S pending -MIVF LR @125mL/hr -Continue to trend H/H, monitor vitals CAD s/p stents -aware -hold ASA, Plavix because of possible GI bleed HTN -aware, continue home Amlodipine -continue to monitor CKD II -Cr 1.24, GFR 70 -continue to monitor HLD -continue home Pravastatin Gout -continue home Allopurinol -hold Meloxicam CHF -last echo was 2018 and showed EF at 50-55% -continue home Atenolol -strict I/Os Disposition/LOS: Code: FULL PCP: [facility] IVF: MIVF @ 125ml/hr Diet: NPO GI prophylaxis: Protonix 40mg BID DVT Prophylaxis: SCDs Dispo: admit to Medicine, obs Addendum - Attending - Attending Attestation Date/Time: 10/06/19 0959 I personally evaluated the patient and discussed the management with Dr. Choudhary. I agree with the History, Examination, Assessment and Plan documented above with any addition or exceptions noted below. Patient here for hematemesis. No recurrent events. Awaiting repeat H/H. GI on board and plans for EGD, further mgmt pending that result. Holding NSAIDs and anti platelet therapy at this time.
[2019-10-06 06:42] LABS: #Basophils 0.1 thou/uL (0.0-0.2); #Eosinphils 0.1 thou/uL (0.0-0.7); #Lymphocytes 1.1 thou/uL (1.20-3.40); #Monocytes 0.4 thou/uL (0.11-0.59); #Neutrophils 5.4 thou/uL (1.40-6.50); %Basophils 0.7 % (0.0-1.0); %Eosinophils 1.3 % (0.0-10.0); %Lymphocytes 15.3 % (21.0-51.0); %Monocytes 5.7 % (0.0-10.0); Hemoglobin 13.6 g/dL (14.0-18.0); Mean Corpuscular HGB CONC 32.3 g/dL (32.0-36.0); Mean Corpuscular Hemoglobin 28.6 pg (27.0-31.0); Mean Corpuscular Volume 88.6 fL (78.0-98.0); Mean Platelet Volume 9.4 fL (7.4-10.4); Platelet Count 177 thou/uL (130-400); RBC Distribution Width 13.5 % (11.5-14.5); Red Blood Cell (RBC) Count 4.75 mill/uL (4.70-6.10)
[2019-10-06 07:06] LABS: ALT (SGPT) 26 U/L (8-55); AST (SGOT) 35 U/L (5-34); Albumin 3.8 g/dL (3.4-4.8); Alkaline Phosphatase 60 U/L (40-110); Anion Gap 14 mmol/L (10-20); BUN (Urea Nitrogen) 22 mg/dL (8.4-25.7); Bilirubin, Total 0.8 mg/dL (0.2-1.2); Calc. Creatinine Clearance 86 mL/min (70-130); Calcium 9.3 mg/dL (7.8-10.44); Carbon Dioxide 28 mmol/L (23-31); Chloride 103 mmol/L (98-107); Estimated GFR-MDRD 70; Globulin 3.1 g/dL (2.4-3.5); Glucose 98 mg/dL (80-115); Potassium 3.5 mmol/L (3.5-5.1); Protein, Total 6.9 g/dL (5.8-8.1); Sodium 141 mmol/L (136-145)
[2019-10-06] MEDS: Lactated Ringer's 1,000 ML IV SCH ×3 (08:25→17:15)
[2019-10-06] MEDS: Pantoprazole 40 MG VIAL IVP SCH (08:28)
--- NOTE | 2019-10-06 09:16 | ULT ---
RIGHT UPPER QUADRANT ULTRASOUND: Date: 10/06/2019 HISTORY: Hematemesis. FINDINGS: Heterogeneous liver echogenicity, evidence for nonspecific hepatic parenchymal disease. There is a fo enrique area of increased echogenicity in the posterior aspect of the left lobe of the liver measuring ap proximately 1.5 x 1.8 x 2.0 cm, possibly a small hemangioma. This is not definitely imaged on the temitope or CT scan of 10/05/2019. Status post cholecystectomy. Common bile duct 0.6 cm. Visualized pancreas a nd right kidney are unremarkable. No abnormal right upper quadrant fluid collection. IMPRESSION: 1. Status post cholecystectomy. 2. No common duct dilatation. 3. Heterogeneous liver echogenicity, evidence for nonspecific hepatic parenchymal process. 4. Small focus of increased echogenicity in what appears to be the posterior aspect of the left lobe of the liver. It is conceivable it could be bowel adjacent to the liver. If it is indeed in the live r, this could represent a small hemangioma. No other significant acute process. POS: [facility]
[2019-10-06] MEDS ORDERED: PROPOFOL 200 MG/20 ML VIAL ONE ×2 (11:31→11:32)
[2019-10-06 12:41] LABS: SARS-CoV-2 MS2 Positive; SARS-CoV-2 N Gene Negative; SARS-CoV-2 S Gene Negative; SARS-CoV-2 orf1ab Negative
[2019-10-06] MEDS ORDERED: Gabapentin 300 MG CAP PO SCH (15:00)
[2019-10-06 15:02] VITALS: BMI 32.0
[2019-10-06] MEDS ORDERED: Ondansetron HCl/PF 4 MG/2 ML Vial IVP PRN (15:31)
--- NOTE | 2019-10-06 18:46 | OP ---
DATE OF PROCEDURE: 10/06/2019 PROCEDURE: Esophagogastroduodenoscopy with biopsy. INDICATION FOR PROCEDURE: Hematemesis. DESCRIPTION OF PROCEDURE: After the risks and benefits of the procedure were explained to the patient, including risks of bleeding, infection, perforation, reactions to anesthesia, aspiration, and/or pain, informed consent was obtained. The patient was then taken to the endoscopy suite, where he was maneuvered into the left lateral decubitus position, followed by introduction of deep sedation via propofol and anesthesia support. Once adequate sedation was achieved, the standard gastroscope was introduced into the mouth with intubation of the esophagus, stomach, and the proximal small intestines with the findings listed below. The patient tolerated the procedure well with no immediate perioperative complications. Upon conclusion of the procedure, all equipment was removed from the patient and he was transferred to PACU in satisfactory condition. FINDINGS: Esophagus: Normal-appearing mucosa was seen in the proximal esophagus; however, a 3 to 4 long linear erosions/ulcerations were seen extending proximally from the gastroesophageal junction from 30 to 40 cm past the incisors. These erosions/ulcerations exhibited some mucosal hemorrhage and clot formation without any evidence of active bleeding. These erosions did not extend between folds nor did they encompass greater than 75% of the esophageal lumen. A small nonobstructive ring was seen in the distal esophagus at approximately 39 cm past the incisors, but not intervened upon during today's examination due to the lack of symptoms of dysphagia and increased risk of perforation with the severe esophagitis. Otherwise, there was no evidence of mass lesions or active bleeding. Stomach: Normal-appearing mucosa was seen in the gastric cardia, fundus, body, greater curvature, and incisura. However, in the antrum, there were 4 to 5 small (1-2 mm) superficial ulcerations along with a 3 to 4 mm clean-based cratered ulceration in the pre-pyloric region. None of these ulcerations exhibited any high-risk stigmata of active or recent bleeding. Multiple biopsies were taken from these ulcerations and placed in a specimen jar for further evaluation. Otherwise, there was no evidence of mass lesions or active/recent bleeding. Duodenum: Multiple superficial erosions were seen in the duodenal bulb measuring 1 to 2 mm in diameter, but there was no evidence of overt ulceration. Normal-appearing mucosa was then seen within the second portion of the duodenum. There was no evidence of ulcerations, mass lesions, or active/recent bleeding. IMPRESSION: 1. LA grade C reflux-mediated erosive esophagitis with clot formation (most likely source of patient's recent hematemesis). 2. Multiple small gastric ulcerations in the antrum and pre-pyloric region without high-risk stigmata of bleeding, status post biopsies. 3. Multiple superficial erosions seen within the duodenal bulb consistent with NSAID-induced injury. RECOMMENDATIONS: 1. Would continue to trend the patient's H and H and transfuse as necessary to maintain an H and H of 7/21. 2. Continue to monitor clinically for signs of active GI bleeding. 3. The patient will need to be on PPI 40 mg twice daily for the next 8 weeks, then would decrease to 40 mg daily indefinitely. 4. Would strongly avoid any NSAIDs as they are the probable causes of the gastric ulcerations and duodenal erosions. 5. Would restart the patient's anticoagulation in 48 hours. 6. Would maintain strict anti-reflux precautions (for example, maintaining an upright posture for 2 to 3 hours after meals, avoid eating meals within 2 to 3 hours of bedtime, avoiding trigger foods). Given the low risk of rebleeding from either the reflux esophagitis or gastric ulcerations and normal H and H, the patient could be potentially discharged to home today on PPI therapy twice daily and follow up in the GI clinic in 3 weeks. We will sign off at this time with following up on biopsy results. Please call with any questions. Job ID: [id number]
[2019-10-06 19:17] VITALS: BP 108/66; TEMP 98
[2019-10-06] MEDS ORDERED: Atorvastatin Calcium 10 MG TAB PO SCH (21:00)
[2019-10-07] MEDS ORDERED: ATENOLOL PO SCH (09:00)
[2019-10-07] MEDS ORDERED: chlordiazePOXIDE HCl 25 MG CAP PO SCH (09:00)
[2019-10-07] MEDS ORDERED: Folic Acid 1 MG TAB PO SCH (09:00)
[2019-10-07] MEDS ORDERED: [UNRECOGNIZED DRUG - OTHER] PO SCH (09:00)
[2019-10-07] MEDS ORDERED: CHLORTHALIDONE PO SCH (09:00)
[2019-10-07] MEDS ORDERED: Chlorthalidone 25 MG TAB PO SCH (09:00)
[2019-10-07] MEDS ORDERED: Atenolol 50 MG TAB PO SCH ×2 (09:00)
[2019-10-07] MEDS ORDERED: Allopurinol 300 MG TAB PO SCH (09:00)
--- NOTE | 2019-10-07 23:25 | DIS ---
DATE OF ADMISSION: 10/05/2019 DATE OF DISCHARGE: 10/06/2019 RESIDENT: Sandra Choudhary MD ADMITTING ATTENDING: Lee Mireles MD DISCHARGE ATTENDING: Lee Mireles MD CONSULTS: Dr. Holt, GI. PROCEDURES: EGD which showed reflux-mediated erosive esophagitis with clot formation which was likely source of patient's recent hematemesis. Multiple small gastric ulcerations in the antrum and pre-pyloric region without high-risk stigmata of bleeding, status post biopsies and multiple superficial erosions seen within the duodenal bulb consistent with NSAID-induced injury. PRIMARY DIAGNOSES: Hematemesis secondary to erosive esophagitis. SECONDARY DIAGNOSES: 1. Gastric ulcers 2. NSAID gastritis 3. Aoronary artery disease 4. Hypertension 5. Hyperlipidemia 6. Gout 7. Congestive heart failure 8. CKD II DISCHARGE MEDICATIONS: Protonix 40 mg p.o. b.i.d., atenolol 100 mg daily, chlorthalidone 25 mg oral daily, folic acid 1 mg oral daily, pravastatin 40 mg oral at bedtime, aspirin 81 mg daily, allopurinol 300 mg daily, gabapentin 300 mg t.i.d., clopidogrel 75 mg daily. Discontinued medications: Meloxicam 15 mg daily. Patient should not take anticoagulation, clopidogrel, and aspirin for 48 hours after discharge, but then is okay to resume. HISTORY OF PRESENT ILLNESS AND HOSPITAL COURSE: The patient is a 69-year-old male with a past medical history of CAD, status post stent placement; hypertension; CKD stage 2; CHF; hyperlipidemia; and gout, who presented complaining of hematemesis. He said he had 4 episodes of bloody vomitus where he had dime and quarter-sized clots that filled up about an inch in his small trash can. He says that it has happened once before about 10 years ago, but patient is a poor historian and was not sure if he ever had it worked up, however, along further chart review, it revealed that patient in 2007 had an EGD that showed erosive esophagitis and his chief complaint at that time was also hematemesis. He says that he has not had any abdominal pain during these episodes. He is tolerating p.o. okay. He says he does have stabbing, intermittent epigastric abdominal pain that is random in nature and does not seem to be associated with food intake or anything specific. He denies any nausea or vomiting, dark stools, GERD, liver problems, recent weight loss, history of heavy alcohol use or IV drug use or any known ulcers. In the ED, the patient received 2 g of Rocephin and Protonix 40 mg. The patient denied any further episodes of hematemesis during hospitalization. GI was consulted and took him for an EGD with findings as listed above. The patient was discharged with directions to continue Protonix 40 mg p.o. b.i.d. for 8 weeks and then he can be switched over to once a day. Also encouraged to not take clopidogrel or aspirin for 48 hours after procedure. Of note, patient said that he was taking three 325 mg aspirin a day , so encouraged patient to only take one a day and followup with PCP to get clarification of what his medication regimen should be. The patient also discharged with education of meloxicam use as he was found to have NSAID gastritis. Encouraged to discontinue meloxicam at this time. Also educated patient on a proper diet with his diagnosis or GERD and the importance of not lying down after meals, etc. The patient's hemoglobin and hematocrit and vitals were stable throughout hospital stay. DISPOSITION: Stable. DISCHARGE INSTRUCTIONS: Location: Home. Diet: Diabetic diet and avoiding foods that aggrevate GERD, ie chocolate, spicy foods, alochol. Trying to sit upright and avoid lying down after meals. Activity: As tolerated. Followup: Follow up with PCP within the week and follow up with GI. Job ID: [id number] [id number]
== END 2019-10-06 19:21 | disposition home or self-care (01) ==
LOC: ERS 13:00 → T4-A 15:18
PROVIDERS: ADMIT Student in an Organized Health Care Education/Training Program; ATTEND Student in an Organized Health Care Education/Training Program
PROC: 0DB78ZX Excision of Stomach, Pylorus, Via Natural or Artificial Opening Endoscopic, Diagnostic (ICD-10-PCS; principal; 2019-10-06)
DX: K22.11 Ulcer of esophagus with bleeding (principal); K29.61 Other gastritis with bleeding; K25.4 Chronic or unspecified gastric ulcer with hemorrhage; K26.4 Chronic or unspecified duodenal ulcer with hemorrhage; K21.0 Gastro-esophageal reflux disease with esophagitis; K22.2 Esophageal obstruction; K31.89 Other diseases of stomach and duodenum; I25.10 Atherosclerotic heart disease of native coronary artery without angina pectoris; I13.0 Hypertensive heart and chronic kidney disease with heart failure and stage 1 through stage 4 chronic kidney disease, or unspecified chronic kidney disease; N18.2 Chronic kidney disease, stage 2 (mild); I50.9 Heart failure, unspecified; E78.5 Hyperlipidemia, unspecified; M10.9 Gout, unspecified; M19.90 Unspecified osteoarthritis, unspecified site; E78.00 Pure hypercholesterolemia, unspecified; G89.29 Other chronic pain; M79.606 Pain in leg, unspecified; R07.9 Chest pain, unspecified; Z11.59 Encounter for screening for other viral diseases; Z79.02 Long term (current) use of antithrombotics/antiplatelets; Z79.1 Long term (current) use of non-steroidal anti-inflammatories (NSAID); Z79.82 Long term (current) use of aspirin; Z79.899 Other long term (current) drug therapy; Z88.7 Allergy status to serum and vaccine; Z95.5 Presence of coronary angioplasty implant and graft
CPT/HCPCS: 43239; 71045; 74177; 76705; 80053 ×2; 82977; 84484; 85025 ×2; 85610; 85730; 86803; 86850; 86900; 86901; 88305; 88312; 93005; 96361 ×2; 96365; 96375; 96376 ×2; 99285; G0378 ×3; U0003; 36415; 87635; C9113; J0696; J2704; J3490; Q9963; Q9967

== ENCOUNTER 2020-05-07 10:02 | Emergency (ER) | payer MEDICARE ==
[2020-05-07 10:39] LABS: #Basophils 0.1 thou/uL (0.0-0.2); #Eosinphils 0.1 thou/uL (0.0-0.7); #Lymphocytes 1.8 thou/uL (1.20-3.40); #Monocytes 0.4 thou/uL (0.11-0.59); %Eosinophils 1.9 % (0.0-10.0); %Lymphocytes 27.7 % (21.0-51.0); %Monocytes 6.7 % (0.0-10.0); %Neutrophils 62.7 % (42.0-75.0); Hemoglobin 16.1 g/dL (14.0-18.0); Mean Corpuscular HGB CONC 33.1 g/dL (32.0-36.0); Mean Corpuscular Hemoglobin 29.7 pg (27.0-31.0); Mean Corpuscular Volume 89.9 fL (78.0-98.0); Mean Platelet Volume 8.9 fL (7.4-10.4); Platelet Count 179 thou/uL (130-400); RBC Distribution Width 13.5 % (11.5-14.5); Red Blood Cell (RBC) Count 5.43 mill/uL (4.70-6.10); White Blood Cell (WBC) Count 6.4 thou/uL (4.8-10.8)
[2020-05-07 10:45] LABS: INR-International Normal Ratio 0.9; Prothrombin Time 12.3 sec (12.0-14.7)
[2020-05-07 10:58] LABS: ALT (SGPT) 26 U/L (8-55); AST (SGOT) 32 U/L (5-34); Albumin 4.7 g/dL (3.4-4.8); Alkaline Phosphatase 78 U/L (40-110); Anion Gap 18 mmol/L (10-20); BUN (Urea Nitrogen) 28 mg/dL (8.4-25.7); Bilirubin, Total 0.6 mg/dL (0.2-1.2); CK (CPK) 532 U/L (30-200); Calc. Creatinine Clearance 0 mL/min (70-130); Calcium 9.6 mg/dL (7.8-10.44); Carbon Dioxide 25 mmol/L (23-31); Chloride 105 mmol/L (98-107); Globulin 3.3 g/dL (2.4-3.5); Glucose 128 mg/dL (80-115); Lipase 59 U/L (8-78); Potassium 3.8 mmol/L (3.5-5.1); Sodium 144 mmol/L (136-145)
[2020-05-07] MEDS ORDERED: Aspirin Chewable 81 MG TAB ONE (12:48)
[2020-05-07] MEDS ORDERED: predniSONE 20 MG TAB ONE (12:48)
== END 2020-05-07 14:22 | disposition home or self-care (01) ==
LOC: ERS 10:02
DX: G51.0 Bell's palsy (principal); E78.5 Hyperlipidemia, unspecified; E78.00 Pure hypercholesterolemia, unspecified; I10 Essential (primary) hypertension; M10.9 Gout, unspecified; M19.90 Unspecified osteoarthritis, unspecified site; Z79.899 Other long term (current) drug therapy; R29.701 NIHSS score 1
CPT/HCPCS: 36415; 36416; 70450; 80053; 82550; 83690; 83880; 84484; 85025; 85610; 93005; J7512

== ENCOUNTER 2022-04-09 15:36 | Emergency (ER) | payer MEDICARE ==
[2022-04-09 16:32] LABS: #Basophils 0.1 thou/uL (0.0-0.2); #Eosinphils 0.1 thou/uL (0.0-0.7); #Lymphocytes 2.1 thou/uL (1.20-3.40); #Monocytes 0.5 thou/uL (0.11-0.59); %Basophils 1.7 % (0.0-1.0); %Eosinophils 2.1 % (0.0-10.0); %Lymphocytes 30.2 % (21.0-51.0); %Monocytes 7.5 % (0.0-10.0); %Neutrophils 58.5 % (42.0-75.0); Hemoglobin 14.6 g/dL (14.0-18.0); Mean Corpuscular HGB CONC 33.2 g/dL (32.0-36.0); Mean Corpuscular Hemoglobin 29.4 pg (27.0-31.0); Mean Corpuscular Volume 88.7 fl (78.0-98.0); Mean Platelet Volume 9.1 fL (7.4-10.4); Platelet Count 173 10x3/uL (130-400); RBC Distribution Width 13.6 % (11.5-14.5); Red Blood Cell (RBC) Count 4.96 mill/uL (4.70-6.10); White Blood Cell (WBC) Count 6.8 10x3/uL (4.8-10.8)
[2022-04-09 16:53] LABS: ALT (SGPT) 20 U/L (8-55); AST (SGOT) 29 U/L (5-34); Albumin 4.4 g/dL (3.4-4.8); Alkaline Phosphatase 77 U/L (40-110); Anion Gap 16 mmol/L (10-20); BUN (Urea Nitrogen) 21 mg/dL (8.4-25.7); Bilirubin, Total 0.4 mg/dL (0.2-1.2); Calc. Creatinine Clearance 0 mL/min (70-130); Calcium 9.6 mg/dL (7.8-10.44); Carbon Dioxide 26 mmol/L (23-31); Chloride 104 mmol/L (98-107); Estimated GFR 54; Globulin 3.1 g/dL (2.4-3.5); Glucose 94 mg/dL (83-110); Potassium 3.6 mmol/L (3.5-5.1); Protein, Total 7.5 g/dL (5.8-8.1); Sodium 142 mmol/L (136-145)
== END 2022-04-09 19:21 | disposition home or self-care (01) ==
LOC: ERS 15:36
DX: R07.89 Other chest pain (principal); E78.00 Pure hypercholesterolemia, unspecified; I10 Essential (primary) hypertension
CPT/HCPCS: 36415; 71045; 80053; 84484; 85025; 93005